=== PATIENT | female | born 1950 | race Caucasian/White ===

== ENCOUNTER → 2021-11-23 | Outpatient (CLI) | payer MEDICARE | LOC: MAMO 09:00 | DX: Z12.31 Encounter for screening mammogram for malignant neoplasm of breast (principal); Z78.0 Asymptomatic menopausal state; M85.89 Other specified disorders of bone density and structure, multiple sites | CPT/HCPCS: 77063; 77067; 77080 ==

== ENCOUNTER → 2021-12-30 | Outpatient (CLI) | payer MEDICARE | LOC: US 12-16 13:30 → MAMO 12-17 13:00 → US 12-17 14:30 → MAMO 13:54 | DX: R92.2 Inconclusive mammogram (principal) | CPT/HCPCS: 76641; 77066; G0279 ==